=== PATIENT | female | born 1970 | race Caucasian/White ===

== ENCOUNTER 2018-09-10 15:39 | Emergency (ER) | payer SELFPAY ==
[~2018-09-10] VITALS: Ht 162.6 cm; Wt 68.2 kg
[2018-09-10] MEDS ORDERED: PHEN25IN3 PO (18:30)
[2018-09-10] MEDS ORDERED: EQL50CAP4 PO (18:30)
[2018-09-10] MEDS ORDERED: THYR15TA PO (18:30)
[2018-09-10] MEDS ORDERED: CETI10CH PO (18:30)
[2018-09-10] MEDS ORDERED: [UNRECOGNIZED DRUG - OTHER] PO (18:30)
[2018-09-10] MEDS ORDERED: CEFU50TA PO (18:30)
[2018-09-10] MEDS ORDERED: SAVE25TA PO (18:43)
[2018-09-10 18:46] VITALS: BP 138/87
== END 2018-09-10 18:53 | disposition home or self-care (01) ==
LOC: M ED 15:39
DX: R11.0 Nausea (principal); K59.00 Constipation, unspecified; T50.995A Adverse effect of other drugs, medicaments and biological substances, initial encounter; X58.XXXA Exposure to other specified factors, initial encounter; Y92.89 Other specified places as the place of occurrence of the external cause; J45.909 Unspecified asthma, uncomplicated; M79.7 Fibromyalgia; D83.9 Common variable immunodeficiency, unspecified; Z79.899 Other long term (current) drug therapy; Z91.048 Other nonmedicinal substance allergy status